=== PATIENT | female | born 1955 | race Caucasian/White ===

== ENCOUNTER 2023-04-16 13:02 | Outpatient (CLI) | payer OTHER | END 2023-04-16 13:16 | disposition home or self-care (01) | LOC: MAMO-SONO 13:02 | PROVIDERS: ATTEND Obstetrics & Gynecology | DX: N60.11 Diffuse cystic mastopathy of right breast (principal) ==

== ENCOUNTER → 2023-05-23 | Outpatient (CLI) | payer OTHER | END | disposition home or self-care (01) | LOC: SONOGRAMA 11:51 | PROVIDERS: ATTEND Surgery | DX: D24.2 Benign neoplasm of left breast (principal) ==

== ENCOUNTER 2023-11-29 13:33 | Emergency (ER) | payer OTHER ==
[~2023-11-29] VITALS: Ht 172.7 cm; Wt 68.9 kg
[2023-11-29] MEDS ORDERED: ESCITALOPRAM OX20 MG PO (13:45)
[2023-11-29] MEDS ORDERED: ZYRTEC10 M3 PO (13:46)
[2023-11-29] MEDS ORDERED: FOSAMAX70 MG PO (13:46)
[2023-11-29] MEDS ORDERED: ROSUVASTATIN CAL5 MG PO (13:46)
[2023-11-29] MEDS ORDERED: 0.9 % SODIUM CHLORIDE 1,000 ML IV STA (15:38)
[2023-11-29] MEDS ORDERED: levoFLOXacin IN DEXTROSE 5 % 5 MG/ML PIGGYBAG IV STA (15:38)
[2023-11-29] MEDS ORDERED: ONDANSETRON HCL 2 MG/ML VIAL IV STA (15:48)
[2023-11-29] MEDS ORDERED: FAMOTIDINE/PF 20 MG/2 ML VIAL IV PUSH STA (15:48)
[2023-11-29] MEDS ORDERED: ACETAMINOPHEN 325 MG TABLET PO ONE (16:15)
[2023-11-29 16:16] LABS: HEMATOCRIT 35.5 % (36.0-45.00); MEAN CELL VOLUME 89.4 fL (80.00-100.00); MEAN CORPUSCULAR HEMOGLOBIN 30.1 pg (27.00-32.0); MEAN CORPUSCULAR HGB CONC 33.6 g/dl (32.0-36.0); PLATELET COUNT 163 K/uL (150-450); RED BLOOD COUNT 3.97 M/uL (4.00-6.00); RED CELL DISTRIBUTION WIDTH 13.8 % (11.5-14.5)
[2023-11-29 16:27] LABS: URINE APPEARANCE Turbid; URINE BILIRRUBIN Negative (NEGATIVE); URINE BLOOD Moderate; URINE COLOR Yellow; URINE GLUCOSE Negative (NEGATIVE); URINE LEUKOCYTE Large; URINE NITRATE Positive
[2023-11-29 16:31] LABS: URINE EPITHELIAL CELLS 6.8 uL (0.0-38.8); URINE RBC 69.7 uL (0.0-20.8)
[2023-11-29 16:39] LABS: CALCIUM 9.9 mg/dL (8.5-10.1); CREATININE SERUM 0.79 mg/dL (0.55-1.02); GFR 72.16; POTASSIUM 4.02 mEq/L (3.5-5.1)
[2023-11-29 17:03] LABS: URINE BACTERIA > 9821.5 uL (0.0-1933); URINE PROTEIN 300 (NEGATIVE); URINE WBC > 5548.3 uL (0.0-23.2)
[2023-11-29] MEDS ORDERED: METOCLOPRAMIDE HCL 5 MG/ML VIAL IV ONE (19:00)
[2023-11-29] MEDS ORDERED: CEFTRIAXONE SODIUM 2,000 MG VIAL IV ONE (22:45)
[2023-11-30] MEDS ORDERED: KETOROLAC TROMETHAMINE 30 MG VIAL IV ONE (00:15)
== END 2023-11-30 12:47 | disposition home or self-care (01) ==
LOC: ER 13:33
PROVIDERS: General Practice
DX: N39.0 Urinary tract infection, site not specified (principal); R53.81 Other malaise; Z88.8 Allergy status to other drugs, medicaments and biological substances
CPT/HCPCS: 36415; 70450; 74176; 76830; 76856; 96365; 96366; 99284; J0696; J1885; J1956; J2405; J2765; J3490; J7030

== ENCOUNTER 2023-12-17 10:58 | Outpatient (CLI) | payer OTHER ==
[~2023-12-17 10:58] MED LIST: ESCITALOPRAM OX20 MG PO; FOSAMAX70 MG PO; ROSUVASTATIN CAL5 MG PO; ZYRTEC10 M3 PO
== END 2023-12-17 11:03 | disposition home or self-care (01) ==
LOC: SONOGRAMA 10:58
PROVIDERS: ATTEND Surgery
DX: N60.11 Diffuse cystic mastopathy of right breast (principal); N60.12 Diffuse cystic mastopathy of left breast

== ENCOUNTER 2024-07-29 11:49 | Outpatient (CLI) | payer OTHER | END 2024-07-29 11:55 | disposition home or self-care (01) | LOC: MAMO-SONO 11:49 | PROVIDERS: ATTEND Surgery | DX: N60.11 Diffuse cystic mastopathy of right breast (principal); N60.12 Diffuse cystic mastopathy of left breast; Z12.31 Encounter for screening mammogram for malignant neoplasm of breast ==

== ENCOUNTER 2025-08-15 11:00 | Outpatient (CLI) | payer OTHER | END 2025-08-15 11:07 | disposition home or self-care (01) | LOC: MAMO-SONO 11:00 | PROVIDERS: ATTEND Surgery | DX: N60.11 Diffuse cystic mastopathy of right breast (principal); N60.12 Diffuse cystic mastopathy of left breast; Z12.31 Encounter for screening mammogram for malignant neoplasm of breast ==